=== PATIENT | female | born 1965 | race African-American/Black ===

== ENCOUNTER 2017-04-07 19:26 | Inpatient (IN) ==
[2017-04-07] MEDS ORDERED: SODIUM CHLORIDE 0.9% 1,000 ML IV STA (22:32)
--- NOTE | 2017-04-07 22:38 | Emergency Department Note ---
Miko Ricks Manpreet, am scribing for, and in the presence of, Eyad Castellanos MD 22:33. Emanuel Ricks Robert M, MD, personally performed the services described in this documentation, ascribed by Logan Crouch in my presence, and it is both accurate and complete . Arrival - Arrival Chief Complaint: Abdominal / Flank Pain Stated Complaint: stomach pain ED Nursing Triage Note: patient states she has the feeling of gas build up in her stomach, took mylanta friday with little relief. c/o nausea with no vomiting, abd. pain across the bottom of stomach Mode of Arrival: Ambulatory Limitations: No Limitations Source: Patient - History of Present Illness HPI Narrative: Pt is a 51 y/o female with PMHx of HTN and bowel obstruction, who presents to the ED with CC of Abd pain and feels like her gas is build up in her stomach since 04/05/2017. Pt also c/o vomiting twice today and her stomach feels bloated. Pt states the symptoms feel like her previous episode of bowel obstruction. No other pains/complaints reported to ED. Onset (ago): day(s) Consistency: constant Severity: mild, moderate Severity scale (1-10): 3 Quality: bloating Allergies/Adverse Reactions: Allergies Allergy/AdvReac Type Severity Reaction Status Date / Time No Known Allergies Allergy Unverified 04/07/17 23:15 Home Medications: Home Medications Medication Instructions Recorded Confirmed Type Quinapril HCl 40 mg PO DAILY 04/07/17 04/07/17 History amLODIPine [Norvasc] 10 mg PO DAILY 04/07/17 04/07/17 History Review of System - Review of System 12 point system: reviewed and no additional remarkable complaints except as stated - Review of System Constitutional: Absent: chills, fever Respiratory: Absent: respiratory distress Cardiovascular: Absent: chest pain Gastrointestinal: Present: abdominal pain, nausea, vomiting. Absent: diarrhea, hematemesis Genitourinary female: Absent: dysuria Musculoskeletal: Absent: arm pain, back pain Neurological: Absent: headache, weakness Medical,Surgical,& Family Hx - Medical History Cardio: History of: Hypertension Gastrointestinal: History of: Bowel Obstruction - Social History Smoking Status: Smoker, status unknown Frequency of Alcohol Use: Occasionally Type of Drug Use: None Exam Vital Signs: Vital Signs Temperature 96.0 F L 04/07/17 22:08 Pulse Rate 111 H 04/07/17 22:08 Respiratory Rate 20 04/07/17 22:08 Blood Pressure 90/58 04/07/17 22:08 O2 Sat by Pulse Oximetry 97 04/07/17 22:08 - General General appearance: alert, in no apparent distress - Head Head exam: Present: atraumatic, normocephalic, normal inspection - Eye Eye exam: Present: normal appearance, PERRL, EOMI - ENT ENT exam: Present: normal exam, normal oropharynx, mucous membranes moist, TM's normal bilaterally - Neck Neck exam: Present: normal inspection, full ROM, trachea midline. Absent: tenderness, thyromegaly - Chest Chest inspection: Present: normal inspection, symmetric chest wall rise. Absent : tenderness - Respiratory Respiratory exam: Present: normal lung sounds bilaterally. Absent: prolonged expiratory phase, respiratory distress - Cardiovascular Cardiovascular exam: Present: regular rate, normal rhythm, normal heart sounds. Absent: murmur, rubs, gallop - Abdominal Exam Abdominal exam: Present: tenderness, other (Midline anterior scar from previous history). Absent: distention, diminished bowel sounds - Extremities Exam Extremities exam: Present: normal inspection, full ROM. Absent: tenderness - Back Exam Back exam: Present: normal inspection, full ROM. Absent: tenderness - Neurological Exam Neurological exam: Present: alert, oriented X3, CN II-XII intact, reflexes normal - Psychiatric Psychiatric exam: Present: normal affect, normal mood - Skin Skin exam: Present: warm, dry, intact, normal color. Absent: pallor Course - Reevaluation(s) Reevaluation #1: Dr. Andrade will admit the patient. Time: 23:53 Reevaluation #2: The patient's chemistry seems to reflect chronic rather than acute renal failure given the potassium is normal and the elevated CO2. Dr. Edgar Murguia was consulted. Time: 00:21 - Consultations Consultation #1: Dr. Andrade will admit the patient. Chemistry is still pending, however I will follow and if electrolytes need to be replaced will order. Time: 23:59 Results - Labs CBC & BMP: 04/07/17 22:54 04/07/17 22:54 Lab Results: I have reviewed the patients labs - Diagnostic Findings Procedure: KUB x-ray: image reviewed by me (SBO, no perf) Disposition Clinical Impression: Small bowel obstruction, Acute kidney insufficiency Case discussed with: patient, patient's family Disposition: Still a Patient Condition: Stable Time of Disposition: 23:59
--- NOTE | 2017-04-07 22:58 | XRay Report ---
XR KUB Indication: Abdominal pain. Abdomen 2 views: Comparison 02/19/2008. Small bowel dilatation is present centrally. Little significant stool or gas is seen in the colon. No evidence of free air. Impression: Small bowel obstruction. PROCEDURE INTERPRETED AT [facility] DEPARTMENT OF RADIOLOGY Final Report Signed by: Manan Mathew M.D.
[2017-04-07 23:18] LABS: Basophils % 0.1 % (0.0-0.8); Eosinophils % 0.1 % (0.00-10.9); Hematocrit 45.1 VOL% (35.7-47.0); Hemoglobin 14.8 GM/DL (12.0-16.0); Immature Granulocytes % 0.4 %; Immature Granulocytes Absolute 0.05 #; Lymphocytes # 1.3 10*3/uL (1.4-4.0); Lymphocytes % 10.6 % (21.3-54.2); Mean Corpuscular HGB Conc 32.8 GM/DL (32-36); Mean Corpuscular Hemoglobin 29 PG (27-34); Mean Corpuscular Volume 86.9 FL (87-102); Mean Platelet Volume 10.1 FL (9.6-12.0); Monocytes # 1.4 10*3/uL (0.11-0.8); Monocytes % 11.4 % (1.7-12.7); Neutrophils # 9.7 10*3/uL (1.4-7.4); Neutrophils % 77.4 % (38.7-73.9); Platelet Count 358 T/CUMM (130-400); Red Blood Count 5.19 MC/CUMM (3.8-5.5); Red Cell Distribution Width 14.9 % (9.3-17.3); White Blood Count 12.5 T/CUMM (4-12)
[2017-04-07] MEDS ORDERED: DEXTROSE 5% LACTATED RINGERS 1,000 ML IV SCH (23:45)
[2017-04-07] MEDS ORDERED: HYDROmorphone 2 MG/1 ML VIAL IV PRN (23:55)
[2017-04-07] MEDS ORDERED: ONDANSETRON 4 MG/2 ML VIAL IV PRN (23:55)
[2017-04-07] MEDS ORDERED: ACETAMINOPHEN 325 MG TABLET PO PRN (23:55)
[2017-04-08 00:06] LABS: Calcium 10.3 MG/DL (8.5-10.1); Magnesium 4.7 MG/DL (1.8-2.4); Osmolality,Calculated 274.5 MOS/KG (273-304); Potassium 4.5 MMOL/L (3.5-5.1)
[2017-04-08] MEDS: SODIUM CHLORIDE 0.9% 1,000 ML IV SCH ×4 (02:06→21:33)
--- NOTE | 2017-04-08 08:28 | XRay Report ---
History: Small bowel obstruction Date: 04/08/2017 Study: KUB Comparison exam: 04/07/2017 The nasogastric tube is well-positioned with its tip over the mid stomach body level. There is continued disproportionate small bowel dilatation compatible with small bowel obstruction, though this is improved in the interval. There is no gross mass lesion. The osseous structures are unchanged. The exam is otherwise unchanged. Impression: Persistent but improving small bowel obstruction following nasogastric tube placement PROCEDURE INTERPRETED AT [facility] DEPARTMENT OF RADIOLOGY Final Report Signed by: Dr. Brittany Loomis
[2017-04-08] MEDS ORDERED: PANTOPRAZOLE 40 MG TABLET PO SCH (09:00)
[2017-04-08 09:33] LABS: Basophils % 0.1 % (0.0-0.8); Eosinophils % 0.2 % (0.00-10.9); Hematocrit 41.8 VOL% (35.7-47.0); Hemoglobin 13.6 GM/DL (12.0-16.0); Immature Granulocytes % 0.3 %; Immature Granulocytes Absolute 0.03 #; Lymphocytes # 1.2 10*3/uL (1.4-4.0); Lymphocytes % 11.3 % (21.3-54.2); Mean Corpuscular HGB Conc 32.5 GM/DL (32-36); Mean Corpuscular Hemoglobin 29 PG (27-34); Mean Corpuscular Volume 88.7 FL (87-102); Mean Platelet Volume 10.4 FL (9.6-12.0); Monocytes # 1.4 10*3/uL (0.11-0.8); Monocytes % 13.9 % (1.7-12.7); Neutrophils # 7.6 10*3/uL (1.4-7.4); Neutrophils % 74.2 % (38.7-73.9); Platelet Count 311 T/CUMM (130-400); Red Blood Count 4.71 MC/CUMM (3.8-5.5); Red Cell Distribution Width 14.9 % (9.3-17.3); White Blood Count 10.2 T/CUMM (4-12)
[2017-04-08 09:56] LABS: Band Neutrophils 6 % (0-10); Eosinophils 2 % (0-10); Lymphocytes 10 % (20-55); Segmented Neutrophils 69 % (50-85); Total Cells Counted 100
[2017-04-08 09:57] LABS: Hypochromasia 1+; Microcytosis 1+; Platelet Estimate Normal
[2017-04-08 09:58] LABS: % Iron Saturation 12.9 % (18-50)
[2017-04-08 10:00] LABS: Lactic Acid 1.6 MMOL/L (0.4-2.0)
[2017-04-08 10:02] LABS: Albumin 3.5 G/DL (3.4-5.0); Bilirubin,Direct 0.2 MG/DL (0.0-0.20); Bilirubin,Indirect 0.9 MG/DL (0.0-1.0); Bilirubin,Total 1.1 MG/DL (0.2-1.0); Total Protein 6.4 G/DL (6.4-8.3)
--- NOTE | 2017-04-08 10:09 | Nephrology Consult Note ---
History of Present Illness Chief complaint: Referred for creatinine of 4.6, hypercalcemia, admitted for SBO. History of present illness: Ms. Tavares is a 51 year old female admitted for SBO. States she feels better since admission. Conservative management with NPO and NG suction/bowel rest. Never told she had problems with her kidneys. HTN x 3 yrs, controlled to goal at home per patient. Admits to being very thirsty. Home Medications Medication Instructions Recorded Confirmed Type Quinapril HCl 40 mg PO DAILY 04/07/17 04/07/17 History amLODIPine [Norvasc] 10 mg PO DAILY 04/07/17 04/07/17 History Allergies Allergy/AdvReac Type Severity Reaction Status Date / Time No Known Allergies Allergy Unverified 04/07/17 23:15 Medical,Surgical,& Family Hx - Medical History Cardio: History of: Hypertension Gastrointestinal: History of: Bowel Obstruction - Social History Smoking Status: Smoker, status unknown Frequency of Alcohol Use: Occasionally Type of Drug Use: None Exam - Vital Signs Vital signs: Period Temp Pulse Resp BP Sys/Kraft Pulse Ox Last 24 Hr 96.0 F-98.7 F 99-121 18-20 90-133/58-79 90-97 - General Appearance General appearance: well-developed, well-nourished EENT: ATNC, PERRL, mucous membranes dry, hearing intact, vision intact Neck: no JVD, no thyromegaly Respiratory: no kyphosis, no scoliosis Cardiology: no murmurs, no rub Gastrointestinal: hypoactive bowel sounds, no tenderness Integumentary: no rash, warm and dry Neurologic: no focal deficit, no asterixis, alert and oriented x3 Musculoskeletal: no deformities, no erythema Psychiatric: mood/affect appropriate, cooperative Results - Labs CBC & BMP: 04/08/17 09:16 04/07/17 22:54 Assessment and Plan (1) CHUN (acute kidney injury) Problem details: Presumed to be acute with no prior labs available for review comparison. No uremic symptoms. Appears prerenal due to SBO and abdominal sequestration of fluids/NG suction. Causing hypochloremic metabolic alkalosis. No indication for renal replacement therapy. Status: Acute Assessment and plan: Agree with aggressive volume resuscitation. Current Visit: Yes (2) Hypercalcemia Problem details: Hypercalcemia with inappropriate PTH, suspicious for primary hyperparathyroidism. This predisposes to volume depletion from nephrogenic DI and bowel obstruction. Status: Acute Assessment and plan: Consider nuclear imaging to localize parathyroid adenoma. Current Visit: Yes
[2017-04-08 10:14] LABS: Albumin 3.5 G/DL (3.4-5.0); Bilirubin,Total 0.7 MG/DL (0.2-1.0); Magnesium 3.9 MG/DL (1.8-2.4); Osmolality,Calculated 281.8 MOS/KG (273-304); Potassium 3.2 MMOL/L (3.5-5.1); Total Protein 6.4 G/DL (6.4-8.3)
[2017-04-08 10:28] LABS: Apearance,Urine CLOUDY (Clear); Bacteria,Urine Occasional /HPF (Few); Bilirubin,Urine Negative (Negative); Blood, Urine Moderate mg/dL (Negative); Glucose,Urine (UA) Negative (Negative); Ketones,Urine Negative (Negative); Mucus,Urine Occasional /LPF (Occasional); Nitrite,Urine Negative (Negative); Protein,Urine 100 MG/DL; RBC,Urine 21 /HPF (0-4); Squamous Epithelial Cell,Urine Occasional /HPF (0-10); Urine Color Yellow (Yellow); Urine Specific Gravity 1.019 (1.001-1.035); Urine Urobilinogen < 2.0 EU/DL (0.2-1.0); WBC,Urine 51 /HPF (0-6)
--- NOTE | 2017-04-08 10:44 | Ultrasound Report ---
Renal ultrasound Indication: Renal failure Comparison: None available Findings: Kidneys are normal in size and echogenicity. No hydronephrosis or nephrolithiasis is seen. The right renal length is 11.0 cm. The left renal length is 10.2 cm. No free fluid or other abnormality is seen. Impression: No evidence of abnormality demonstrated. Ultrasound images stored and captured. PROCEDURE INTERPRETED AT [facility] DEPARTMENT OF RADIOLOGY Final Report Signed by: Dr. Hao Salazar
[2017-04-08 10:52] LABS: Creatinine,Urine Random 303 MG/DL; Total Protein,Urine Random 97 MG/DL; Urea Nitrogen, Urine Random 885 MG/DL
[2017-04-08] MEDS: PANTOPRAZOLE 40 MG VIAL IV SCH (11:09)
--- NOTE | 2017-04-08 11:21 | General Surg History&Physical ---
Assessment and Plan - Time spent with patient Time spent with patient: Less than 30 minutes Time spent discussing smoking cessation with patient: 3 to 10 minutes (1) Small bowel obstruction Status: Acute Assessment and plan: Continue conservative treatment. NG tube, bowel rest, IV fluids. Patient already appears to be improving. Current Visit: Yes History of Present Illness Chief complaint: Abdominal pain with small bowel obstruction History of present illness: Ms. Tavares is a 51 year old female who presents with a one-day history of abdominal pain nausea and vomiting. Workup in the ER revealed a small bowel obstruction. She had a similar event about 9 years ago that required exploration. Questionable history of Crohn's. Overnight she has had an NG tube placed and has done pretty well. Started having some flatus and bowel movements. Still some bilious green stuff out her NG tube. Home Medications Medication Instructions Recorded Confirmed Type Quinapril HCl 40 mg PO DAILY 04/07/17 04/07/17 History amLODIPine [Norvasc] 10 mg PO DAILY 04/07/17 04/07/17 History Allergies Allergy/AdvReac Type Severity Reaction Status Date / Time No Known Allergies Allergy Unverified 04/07/17 23:15 Medical,Surgical,& Family Hx - Medical History Cardio: History of: Hypertension Psychological: No history of: Depression Neurology: No history of: Migraine Gastrointestinal: History of: Bowel Obstruction - Social History Smoking Status: Smoker, status unknown Frequency of Alcohol Use: Occasionally Type of Drug Use: None Exam - Constitutional Vitals: Period Temp Pulse Resp BP Sys/Kraft Pulse Ox Last 24 Hr 96.0 F-98.7 F 99-121 18-20 90-133/58-79 90-97 General appearance: normal weight, no acute distress - Head Head exam: Present: normal inspection - Eye Pupils: Present: normal accommodation - ENT ENT exam: Present: normal exam - Neck Neck exam: Present: normal inspection - Respiratory Respiratory exam: Present: clear to auscultation bilaterally - Cardiovascular Cardiovascular exam: Present: RRR - GI/Abdominal GI/Abdominal exam: Present: distended, tenderness - Neurological Exam Neurological exam: Present: alert, oriented X3 - Constitutional Constitutional: Present: as per HPI. Absent: chills, fatigue, fever(s) - Cardiovascular Cardiovascular: Absent: chest pain at rest, syncope - Respiratory Respiratory: Absent: cough - Gastrointestinal Gastrointestinal: Present: bloating, change in bowel habits, nausea, vomiting - Musculoskeletal Musculoskeletal: Absent: back pain - Neurological Neurological: Absent: abnormal gait Results - Labs CBC & BMP: 04/08/17 09:16 04/08/17 09:16 - Diagnostic Findings Procedure: CT Abdomen and Pelvis: report reviewed by me, image reviewed by me
[2017-04-09 05:17] LABS: Basophils % 0.3 % (0.0-0.8); Eosinophils % 0.1 % (0.00-10.9); Hematocrit 38.5 VOL% (35.7-47.0); Hemoglobin 12.3 GM/DL (12.0-16.0); Immature Granulocytes % 0.4 %; Immature Granulocytes Absolute 0.05 #; Lymphocytes # 1.3 10*3/uL (1.4-4.0); Lymphocytes % 10.7 % (21.3-54.2); Mean Corpuscular HGB Conc 31.9 GM/DL (32-36); Mean Corpuscular Hemoglobin 29 PG (27-34); Mean Corpuscular Volume 89.3 FL (87-102); Mean Platelet Volume 10.3 FL (9.6-12.0); Monocytes # 1.5 10*3/uL (0.11-0.8); Monocytes % 11.9 % (1.7-12.7); Neutrophils # 9.3 10*3/uL (1.4-7.4); Neutrophils % 76.6 % (38.7-73.9); Platelet Count 269 T/CUMM (130-400); Red Blood Count 4.31 MC/CUMM (3.8-5.5); Red Cell Distribution Width 14.7 % (9.3-17.3); White Blood Count 12.2 T/CUMM (4-12)
[2017-04-09 05:46] LABS: Bilirubin,Total 1.3 MG/DL (0.2-1.0); Calcium 8.4 MG/DL (8.5-10.1); Magnesium 3.2 MG/DL (1.8-2.4); Osmolality,Calculated 282.4 MOS/KG (273-304); Potassium 3.7 MMOL/L (3.5-5.1); Total Protein 5.6 G/DL (6.4-8.3)
[2017-04-09 05:58] LABS: Hypochromasia 1+; Lymphocytes 10 % (20-55); Platelet Estimate Adequate; Segmented Neutrophils 75 % (50-85); Total Cells Counted 100
[2017-04-09] MEDS: SODIUM CHLORIDE 0.9% 1,000 ML IV SCH ×2 (06:00→15:16)
[2017-04-09] MEDS: PANTOPRAZOLE 40 MG VIAL IV SCH (09:28)
--- NOTE | 2017-04-09 11:38 | Nephrology Progress Note ---
Nephrology - PN: Subj Interval history: Pt in good spirits. States feeling much better, but still with some diffuse abdominal pain. Denies SOB. FeUrea indicated mod-severe volume depletion (15% FeUrea). Creatinine improved to normal 0.9 after volume resuscitation. Exam (PN)-Nephrology - Vital Signs Vital signs: Period Temp Pulse Resp BP Sys/Kraft Pulse Ox Last 24 Hr 97.4 F-98.3 F 92-121 16-20 103-134/63-90 90-95 - General Appearance General appearance: well-developed, well-nourished EENT: ATNC, PERRL Neck: no JVD, no thyromegaly Respiratory: no kyphosis, clear Cardiology: no murmurs, no rub Gastrointestinal: normoactive bowel sounds, no tenderness Integumentary: no rash, warm and dry Neurologic: no focal deficit, no asterixis, alert and oriented x3 Musculoskeletal: no deformities, no erythema Psychiatric: mood/affect appropriate, cooperative - Lab 04/09/17 05:03 04/09/17 05:03 Most recent lab results Calcium 8.4 MG/DL (8.5-10.1) L 04/09/17 05:03 Magnesium 3.2 MG/DL (1.8-2.4) H 04/09/17 05:03 Assessment and Plan (1) CHUN (acute kidney injury) Problem details: Prerenal azotemia due to SBO and abdominal sequestration of fluids/NG suction, resolved. Status: Acute Assessment and plan: Will sign off case at this time. Please call for any questions or concerns. Current Visit: Yes (2) Hypercalcemia Problem details: Hypercalcemia with inappropriate PTH, suspicious for primary hyperparathyroidism. This predisposes to volume depletion from nephrogenic DI and bowel obstruction. Status: Acute Assessment and plan: Consider nuclear imaging to localize parathyroid adenoma as outpt once current acute issues resolved. Current Visit: Yes
[2017-04-09] MEDS: ENOXAPARIN 40 MG/0.4 ML SYRINGE SUBCUT SCH (12:12)
--- NOTE | 2017-04-09 12:42 | Progress Note ---
Assessment and Plan (1) Small bowel obstruction Status: Acute Assessment and plan: Continue conservative treatment. NG tube, bowel rest, IV fluids. Patient already appears to be improving. Current Visit: Yes Family Medicine PN Sub Interval history: Patient no acute events overnight. Doing well. Having bowel movements and flatus. Still occasional abdominal pain but overall much better. Mild amount of NG tube output. Exam (Progress Note) - Constitutional Vitals: Period Temp Pulse Resp BP Sys/Kraft Pulse Ox Last 24 Hr 97.4 F-98.2 F 92-121 16-20 114-134/66-90 90-95 General appearance: normal weight - Eye Pupils: Present: ROYCE - ENT ENT exam: Present: normal exam - Neck Neck exam: Absent: tenderness - Respiratory Respiratory exam: Present: clear to auscultation bilaterally - Cardiovascular Cardiovascular exam: Present: regular rate and rhythm - GI/Abdominal GI/Abdominal exam: Present: tenderness (Mild tenderness in the epigastric area.) . Absent: distended Results - Labs CBC & BMP: 04/09/17 05:03 04/09/17 05:03 Quality Measures - VTE Contraindication to Pharmacological VTE Prophylaxis: High Risk of Bleeding
[2017-04-10] MEDS: PANTOPRAZOLE 40 MG TABLET PO SCH (08:07)
--- NOTE | 2017-04-10 09:23 | General Surgery Progress Note ---
Assessment and Plan (1) Small bowel obstruction Status: Acute Assessment and plan: Tolerating clears no issues. Advance diet. Likely discharge tomorrow Current Visit: Yes Subjective Patient reports: Present: no new complaints, feels better, pain is less, tolerating liquids well Exam - Constitutional Vitals: Period Temp Pulse Resp BP Sys/Kraft Pulse Ox Last 24 Hr 97.0 F-100.2 F 88-121 16-20 116-136/73-90 91-99 - Respiratory Respiratory exam: Present: clear to auscultation bilaterally - Cardiovascular Cardiovascular exam: Present: RRR - GI/Abdominal GI/Abdominal exam: Present: normal bowel sounds. Absent: distended, tenderness , rebound Results - Labs CBC & BMP: 04/09/17 05:03 04/09/17 05:03 Lab Results: I have reviewed the past 24 hour labs Quality Measures - VTE Contraindication to Pharmacological VTE Prophylaxis: High Risk of Bleeding
[2017-04-10] MEDS: ENOXAPARIN 40 MG/0.4 ML SYRINGE SUBCUT SCH (09:33)
[2017-04-10] MEDS ORDERED: diphenhydrAMINE CAP 25 MG CAPSULE PO PRN (09:36)
--- NOTE | 2017-04-10 15:37 | Ultrasound Report ---
US gallbladder Indication: Postprandial abdominal pain. ULTRASOUND ABDOMEN, limited Comparison: None Findings: Liver: Unremarkable Gallbladder: No stones or sludge. There is a 5 mm soft tissue polyp adherent to the wall of the lumen of the gallbladder. No pericholecystic fluid. Negative sonographic Looney sign. Common bile duct: 4 mm Pancreas: Obscured by bowel gas Right kidney: 10.9 cm length. No mass, cyst, calcification or obstruction Impression: Gallbladder polyp. Otherwise negative ultrasound. PROCEDURE INTERPRETED AT [facility] DEPARTMENT OF RADIOLOGY Final Report Signed by: Manan Mathew M.D.
[2017-04-10] MEDS: SODIUM CHLORIDE 0.9% 1,000 ML IV SCH (21:12)
[2017-04-11 06:53] LABS: Basophils % 0.3 % (0.0-0.8); Eosinophils % 0.4 % (0.00-10.9); Hematocrit 34.7 VOL% (35.7-47.0); Hemoglobin 11.1 GM/DL (12.0-16.0); Immature Granulocytes % 0.4 %; Immature Granulocytes Absolute 0.03 #; Lymphocytes # 1.9 10*3/uL (1.4-4.0); Lymphocytes % 26.9 % (21.3-54.2); Mean Corpuscular Hemoglobin 28 PG (27-34); Mean Corpuscular Volume 87.6 FL (87-102); Mean Platelet Volume 10.9 FL (9.6-12.0); Monocytes % 13.6 % (1.7-12.7); Neutrophils # 4.2 10*3/uL (1.4-7.4); Neutrophils % 58.4 % (38.7-73.9); Platelet Count 248 T/CUMM (130-400); Red Blood Count 3.96 MC/CUMM (3.8-5.5); Red Cell Distribution Width 14.2 % (9.3-17.3); White Blood Count 7.2 T/CUMM (4-12)
[2017-04-11 07:25] LABS: Albumin 2.8 G/DL (3.4-5.0); Bilirubin,Total 0.5 MG/DL (0.2-1.0); Calcium 8.1 MG/DL (8.5-10.1); Osmolality,Calculated 276.3 MOS/KG (273-304); Potassium 3.4 MMOL/L (3.5-5.1); Total Protein 5.6 G/DL (6.4-8.3)
[2017-04-11] MEDS: PANTOPRAZOLE 40 MG TABLET PO SCH (08:24)
[2017-04-11] MEDS: ENOXAPARIN 40 MG/0.4 ML SYRINGE SUBCUT SCH (09:15)
[2017-04-11 11:27] VITALS: BP 116/75
--- NOTE | 2017-04-11 14:59 | Discharge Summary ---
Hospital Course - Hospital Course Hospital Course: Patient is a 51-year-old female was admitted with small bowel obstruction for which she responded well to conservative measures including NG tube placement, bowel rest and IV hydration. She was also noted to have acute kidney injury on admission with no history of prior kidney dysfunction with elevated calcium levels. Nephrology was consulted and input was appreciated. The patient's renal function and calcium return to normal levels with IV hydration. She is ultimately tolerating oral intake without difficulty she did have some mild residual knowledge is nausea and symptoms of biliary colic. Complete ultrasound indicated possible gallbladder polyp versus stone. No evidence of acute cholecystitis. At the time of discharge, she was tolerating regular diet , passing her bowels and flatus, and voiding without difficulty. She was discharged home in good condition with follow-up in approximately [address] Andrade to further discuss surgical versus observational management. She was educated on low-fat diet to hopefully decrease her symptoms. The patient expresses verbal understanding of these instructions. No comp occasions to note. Patient was discharged home in good condition.. Diagnosis - Discharge Diagnosis (1) Acute kidney insufficiency Status: Resolved (2) Small bowel obstruction Status: Resolved (3) Hypercalcemia Status: Resolved Specialty Discharge - Follow Up or Referrals Follow up with: Casper Andrade MD [Physician] - (Call office Friday04/14/2017 for appt #[phone]) Discharge Plan - Discharge Data Disposition: Disch To Home/Self Care Condition at Discharge: Stable Discharge Diet: advance to your usual diet Contact your physician if you experience:: Nausea/Vomiting (increased abdominal pain) - Discharge Medications New HYDROcodone/ACETAMIN 7.5-325 [[place] 7.5-325] 1 tablet PO Q4H PRN #20 tablet PRN Reason: Pain Moderate To Severe (4-10) Continue amLODIPine [Norvasc] 10 mg PO DAILY Quinapril HCl 40 mg PO DAILY - Follow Up or Referral Follow Up: Casper Andrade MD [Physician] - (Call office Friday04/14/2017 for appt #[phone]) - Forms/Instructions Instructions: Low Fat Diet (DC), Bowel Obstruction (DC) Exam - Constitutional Vitals: Period Temp Pulse Resp BP Sys/Kraft Pulse Ox Last 24 Hr 97.2 F-98.7 F 73-91 16-20 108-148/74-84 94-100 General appearance: no acute distress - Head Head exam: Present: normal inspection, normocephalic - Eye Eye exam: Absent: conjunctival injection, scleral icterus - Respiratory Respiratory exam: Present: clear to auscultation bilaterally - Cardiovascular Cardiovascular exam: Present: regular rate and rhythm - GI/Abdominal GI/Abdominal exam: Present: normal bowel sounds, soft. Absent: distended, Looney's sign, tenderness - Extremities Exam Extremities exam: Absent: calf tenderness, edema - Neurological Exam Neurological exam: Present: alert, oriented X3 - Psychiatric Psychiatric exam: Present: normal affect, normal mood - Skin Skin exam: Present: normal color, warm Discharge Results Procedures and tests throughout hospitalization: None Labs on day of discharge: Labs from last 24 hours 04/11/17 04/11/17 06:12 06:12 WBC 7.2 D RBC 3.96 Hgb 11.1 L Hct 34.7 L MCV 87.6 MCH 28 MCHC 32.0 RDW 14.2 Plt Count 248 MPV 10.9 Neut % (Auto) 58.4 Lymph % (Auto) 26.9 [place] % (Auto) 13.6 H Eos % (Auto) 0.4 Baso % (Auto) 0.3 Neut # (Auto) 4.2 Lymph # (Auto) 1.9 [place] # (Auto) 1.0 H Eos # (Auto) 0.0 Baso # (Auto) 0.0 Immature Gran % 0.4 Nucleated RBC % 0.0 Immature Gran # 0.03 Nucleated RBCs # 0.00 Sodium 141 Potassium 3.4 L Chloride 105 Carbon Dioxide 27 Anion Gap 12.4 BUN 5 L Creatinine 0.50 L GFR Calculation 141 BUN/Creatinine Ratio 10.00 Glucose 80 Calculated Osmolality 276.3 Calcium 8.1 L Total Bilirubin 0.50 AST 14 ALT 17 Alkaline Phosphatase 57 Total Protein 5.6 L Albumin 2.8 L Globulin 2.8 Albumin/Globulin Ratio 1.0 L - Imaging and Cardiology Procedure: Abdominal x-ray: image reviewed by me, report reviewed by me, KUB x- ray: image reviewed by me, report reviewed by me, Ultrasound: report reviewed by me (Renal, gallbladder) DS: Provider Date of admission: 04/07/17 23:55 Primary care physician: . No PCP Attending physician on admission: Casper Andrade MD Consults: 04/08/17 00:25 Consult to Physician [CONS] Routine Comment: Consulting Provider: César Anand Consulting Provider Notified: Yes When should Consulting Provider be notified: In am Consult to Specialist Group: Nephrology When should Consulting Provider be notified: In am Person Notified: Doris olsen Date Notified: 04/08/17 Time Notified: 07:44 Discharging clinician: Janna Lima PA-C
== END 2017-04-11 15:50 | disposition home or self-care (01) | DRG 389 ==
LOC: N.ED 19:26 → N.EDINP 23:55 → N.3E 04-08 01:02
PROVIDERS: ADMIT Surgery; ATTEND Surgery